=== PATIENT | male | born 1970 | race Caucasian/White ===

== ENCOUNTER 2017-12-25 19:53 | Emergency (ER) | payer OTHER, SELFPAY ==
[2017-12-25 19:59] VITALS: BP 167/98; PULSE 80; RESP 20; TEMP 36.6; O2SAT 97; BMI 44.7
--- NOTE | 2017-12-25 20:42 | ED.EPISTAXIS ---
HPI - Epistaxis General Chief complaint: Nasal Problem Stated complaint: nose bleed wont stop Time Seen by Provider: 12/25/17 20:42 Source: patient Mode of arrival: ambulatory Limitations: no limitations History of Present Illness HPI Narrative: Patient is a 47-year-old male who presents with a nosebleed. He says it just started prior to arrival. Nasal clamp initially was placed in does seem to be controlling at however he had was bleeding quite a bit and was draining down his throat. No anti-platelet or anticoagulation medication. He denies any injury MD complaint: epistaxis Location: right nostril Related Data Home Medications Medication Instructions Recorded Confirmed carvedilol [Coreg] #0 07/19/17 clonazepam [Klonopin] #0 07/19/17 dextroamphetamine [Dexedrine #0 07/19/17 Spansule] duloxetine [Cymbalta] #0 07/19/17 lisinopril #0 07/19/17 potassium chloride [Klor-Con #0 07/19/17 Sprinkle] Allergies Allergy/AdvReac Type Severity Reaction Status Date / Time No Known Allergies Allergy Uncoded 12/25/17 20:06 Review of Systems Review of Systems All systems reviewed & are unremarkable except as noted in HPI and below Constitutional Denies chills, Denies fever(s), Denies lethargy and Denies weakness ENT Ears, Nose, Mouth, and Throat: Reports system reviewed and no additional complaints, except as docu, Reports as per HPI, Denies nasal obstruction and Denies nasal trauma Cardiovascular Denies dyspnea and Denies dyspnea on exertion Respiratory Denies cough, Denies dyspnea, Denies dyspnea on exertion and Denies wheezing Gastrointestinal Gastrointestinal: Denies abdominal pain, Denies change in bowel habits, Denies diarrhea, Denies nausea and Denies vomiting Integumentary/Breasts Denies pruritus, Denies erythema, Denies rash and Denies wounds Neurologic Denies weakness Allergic/Immunologic Denies wheezing [facility] Medical History Hypertension (Acute) Social History Smoking Status: Never smoker Exam Initial Vital Signs Initial Vital Signs: Vital Signs Temperature 97.9 F 12/25/17 19:59 Pulse Rate 80 12/25/17 19:59 Respiratory Rate 20 12/25/17 19:59 Blood Pressure 167/98 H 12/25/17 19:59 Pulse Oximetry 97 12/25/17 19:59 Const General: cooperative and healthy appearing EUGENE Nose: epistaxis (Right side bleeding), No foreign body in naris and No septum abnormal Throat: posterior oropharynx normal Neck Neck: full ROM Chest Chest: normal inspection of the chest Resp Effort & Inspection: normal respiratory effort and able to speak in complete sentences Cardio Pulses: normal peripheral pulses Skin General: no rashes or lesions noted, No jaundice and No petechiae Neuro General: alert, awake and oriented x3 Procedures Epistaxis Control Time Out Performed: Yes Nostril: right Nose Prepped With: oxymetazoline Direct Inspection: unable to visualize Clots Removed by: blowing nose Cautery Used: none Device Inserted: hemostatic balloon Patient Tolerated Procedure: well Course Hospital Course: Initially after then clamped use to control nose bleed. Not dripping down the throat. However he still wheezing some. No anterior source is identified. Rhino rocket is placed with Afrin. This remains in place for some time. Once it is removed of the bleeding has stopped. Vital Signs - 8 hr 12/25/17 19:59 12/25/17 22:05 Temperature 97.9 F Pulse Rate 80 75 Respiratory Rate 20 18 Blood Pressure 167/98 H Blood Pressure [Left Wrist] 158/86 H Pulse Oximetry 97 97 Discharge Plan Departure Patient Disposition: Home, Self-Care Clinical Impression: Epistaxis Discharge Date/Time: 12/25/17 22:14 Interventions: ED Discharge Assessment Last Done: 12/25/17 22:15 Instructions: DI for Nosebleed Activity Restrictions/Additional Instructions: *You have been diagnosed with nose bleed *What to do: If nosebleed started again placed clamp, leave on for 30-60 minutes keep head forward *Continue to take medications as directed *Follow up with your primary care provider in 2-3 days *Return to ER if you should have ongoing nose bleed that does not stop after 30-60 minutes of nasal clamp, worsening or concerning symptoms Prescriptions: No Action carvedilol [Coreg] 3.125 mg Tablet Qty: 0 RF: 0 lisinopril 2.5 mg Tablet Qty: 0 RF: 0 duloxetine [Cymbalta] 20 mg Capsule,Delayed Release(Dr/Ec) Qty: 0 RF: 0 potassium chloride [Klor-Con Sprinkle] 8 mEq Capsule, Extended Release Qty: 0 RF: 0 clonazepam [Klonopin] 0.5 mg Tablet Qty: 0 RF: 0 dextroamphetamine [Dexedrine Spansule] 5 mg Capsule, Extended Release Qty: 0 RF: 0
[2017-12-25 22:05] VITALS: BP 158/86; PULSE 75; RESP 18; O2SAT 97
== END 2017-12-25 22:14 | disposition home or self-care (01) ==
PROVIDERS: Emergency Provider Emergency Medicine
DX: R04.0 Epistaxis (principal)
CPT/HCPCS: 30905; 99282

== ENCOUNTER → 2023-05-07 17:41 | Outpatient (CLI) | payer OTHER, SELFPAY ==
[2023-05-07 18:37] LABS: Add Manual Diff / Slide Review NO; Basophils Absolute Auto 100 /uL (0-100); Basophils Percent Auto 0.8 % (0-2); Eosinophils Absolute Auto 200 /uL (0-450); Eosinophils Percent Auto 2.4 % (2-4); Hematocrit 42.7 % (41-53); Hemoglobin 14.5 g/dL (13.5-17.5); Lymphocytes Absolute Auto 3200 /uL (1100-4500); Lymphocytes Percent Auto 33.8 % (25-40); Mean Corpuscular HGB Conc 33.9 % (30-36); Mean Corpuscular Hemoglobin 30.2 PG (26-34); Mean Corpuscular Volume 89.2 fL (80-100); Monocytes Absolute Auto 600 /uL (0-900); Monocytes Percent Auto 6.7 % (3-14); Neutrophils Absolute Auto 5300 /uL (1500-7000); Neutrophils Percent Auto 56.3 % (50-75); Platelet Count 252 X10^3/uL (150-400); Red Blood Cell Count 4.79 X10^6/uL (4.5-5.9); Red Cell Distribution Width 14.4 % (11.6-14.8); White Blood Cell Count 9.4 X10^3/uL (4.5-11.0)
[2023-05-07 18:40] LABS: BUN Creatinine Ratio 18.4 (6-22); Blood Urea Nitrogen 18 mg/dL (9-20); Calcium 9.7 mg/dL (8.4-10.2); Carbon Dioxide 27 mmol/L (22-32); Chloride 99 mmol/L (98-107); Estimated Glomerular Filt Rate > 60 mL/min (>60); Glucose 88 mg/dL (70-100); Hemoglobin A1C% w Est Avg Glu 5.9 % (4.0-6.0); Potassium 4.6 mmol/L (3.4-5.1); Sodium 137 mmol/L (137-145)
[2023-05-07 19:18] LABS: HEMOLYSIS 82 (0-50)
== END ==
PROVIDERS: Referring Provider Orthopaedic Surgery Orthopaedic Surgery of the Spine; Visit Provider Orthopaedic Surgery Orthopaedic Surgery of the Spine
DX: M48.02 Spinal stenosis, cervical region (principal); R73.9 Hyperglycemia, unspecified; Z01.812 Encounter for preprocedural laboratory examination
CPT/HCPCS: 36415; 80048; 83036; 85025

== ENCOUNTER → 2023-05-08 16:05 | Outpatient (CLI) | payer OTHER, SELFPAY | PROVIDERS: Referring Provider Orthopaedic Surgery Orthopaedic Surgery of the Spine; Visit Provider Orthopaedic Surgery Orthopaedic Surgery of the Spine | DX: I10 Essential (primary) hypertension (principal) | CPT/HCPCS: 93005; 93010 ==

== ENCOUNTER 2023-06-05 07:30 | Inpatient (IN) | payer OTHER, SELFPAY ==
[2023-05-27 13:52] VITALS: BMI 43.8
[2023-06-05] VITALS (13 sets, daily range): BP systolic 126–165; BP diastolic 67–101; PULSE 63–93; RESP 11–18; TEMP 36.3–37.3; O2SAT 92–99; BMI 43.8
--- NOTE | 2023-06-05 | DI.RAD.S_ITS ---
PROCEDURE: XR CERVICAL SPINE 2V OR 3V INDICATIONS: C3-4 C4-5 C5-6 C6-7 ACDF TECHNIQUE: 4 view(s) of the cervical spine were acquired. COMPARISON: None. FINDINGS: Intraoperative fluoroscopic views of multilevel ACDF are seen. IMPRESSION: Intraoperative fluoroscopic views of ACDF. Dictated by: Frandy Orozco M.D. on 06/05/2023 at 16:51 Approved by: Frandy Orozco M.D. on 06/05/2023 at 16:51
[2023-06-05] MEDS: GABAPENTIN 600 MG TABLET PO (07:57)
[2023-06-05] MEDS: LACTATED RINGERS 1,000 ML 42 ML IV ×2 (08:13→10:25)
--- NOTE | 2023-06-05 08:35 | PM.PREOP ---
Pre-operative Note Interval Note History & Physical reviewed/Exam performed by Physician: Yes Changes to H&P: No
[2023-06-05] MEDS: CEFAZOLIN 2 GM/100 ML PREMIX 100 ML IV (09:10)
--- NOTE | 2023-06-05 09:31 | SUR.OPER ---
Supine on padded OR bed, head on gel donut, arms padded and papoosed with draw sheet and closed with towel clamps, legs uncrossed, safety belt at thigh, tape over blanket over lower legs.
[2023-06-05] MEDS: BUPIVACAINE 0.25% (PF) 10 ML, EPINEPHrine 0.15 MG INJ (10:15)
[2023-06-05] MEDS: ACETAMINOPHEN IV 1,000 MG/100 ML VIAL 400 MG IV (11:30)
--- NOTE | 2023-06-05 13:33 | P.OP_ITS ---
Operative Date/Time/Diagnoses Date of procedure: 06/05/23 Time of procedure: 08:40 Pre-op diagnosis: 1. 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 C3-4, C4-5, C5-6, C6-7 spinal stenosis Post-op diagnosis: same Procedure & Clinicians Procedure: 1. C3-4 C4-5 C5-6 C6-7 anterior cervical diskectomy and fusion 2. C3-4 C4-5 C5-6 C6-7 anterior interbody cage placement 3. C3-4 C4-5 C5-6 C6-7 anterior instrumentation with plate and screw placement in C3-C4-C5-C6 and C7 vertebrae 4. Utilization of microsurgical technique and operating microscope Same procedure as scheduled: Yes Indications: Patient has been having chronic neck pain and worsening cervical radiculopathy and myelopathy. His exam shows progressively worsening myelopathic signs with + Benítez's and worsening balance and fine motor control coordination. Patient failed multiple conservative management with worsening pain weakness and numbness in his upper extremity along with worsening balance. Patient has been having difficulty performing activity of daily living. After discussing risks benefits of treatment options, patient elected proceed with surgery. Surgeon: Nicole Doshi [employer] Salesperson: Margot Thomas Click Yes if Unassisted: No Anesthesia Type: General Operative Notes Closure Type: primary Specimen(s): none sent Prosthetic devices, grafts, tissues, transplants, or devices: Globus Extend Plate, Hedron C cages Applied: catheter Estimated Blood Loss (mL): 10 Blood products transfused: none Procedure in detail: Using lateral C-arm imaging, the level between C3 and C7 was identified and marked on patient's neck. A oblique incision from midline towards medial border of sternocleidomastoid muscle was made. The platysma muscle was incised in line with skin incision. Metzenbaum scissor was used to develop the plane between the medial border of sternocleidomastoid d and the strap muscles medially. The carotid sheath and its contents were identified and protected behind the hand- held retractor during the entire case. The plane between the carotid sheath and strap muscles was developed with Metzenbaum scissors. Dissection was made down to the level of the anterior cervical fascia. Longus colli muscle was incised on the anterior aspect of vertebral bodies bilaterally from C3-C7. Spinal needle was placed into the C4-5 disc space and confirmed with lateral C-arm imaging. Using microsurgical technique and operative microscope, anterior cervical diskectomy was performed at C3-4 C4-5 C5-6 and C6-7 level. This was done by removing the disc material, removing the anterior and posterior osteophytes posterior longitudinal ligaments along with performing bilateral foraminotomies at all 4 levels. Patient was found to have severe central and foraminal stenosis at all 4 levels. Patient's stenosis was fully decompressed after decompression was completed. After the diskectomy was completed, 4 anterior interbody cages were obtained. The cage used was the globus Hedrone C cage at L4 levels. The cages were packed with DBM bone grafting material. One cage each along with the bone grafting material was then packed into the interbody spaces from C3-C7 with 1 cage into each interbody level. After the cages were placed, the anterior cervical plate was stabilized to the C3-C7 vertebrae using 2 screws at each each level. Total 10 screws were placed. After confirming placement of the hardware with AP and lateral C-arm imaging, the screws were locked into the plate using the locking mechanism and torque limiting screwdriver. After the hardware was placed and confirmed with AP and lateral C-arm imaging, the wound was irrigated with sterile normal saline. The platysma muscle and the subcutaneous tissue was closed with 2-0 Vicryl. The skin was closed with 4-0 Monocryl and Steri-Strips. At the end of the wound closure there was no visible active bleeding from the soft tissue. No drain was placed during the procedure. Patient tolerated the procedure well. Patient was transferred recovery room in stable condition. There were no complications. The Operation could not have been safely performed without compromising the technical result or length of the procedure, without the assistance of a skilled surgical services coordinator. The surgical services coordinator was medically necessary for proper positioning, retraction and manipulation of instruments, proper exposure, surgical preparation, and manipulation of tissue. Complications: none Post-operative Condition: stable Disposition: PACU Plan for aftercare: Admit to inpatient hospital
[2023-06-05] MEDS: OXYCODONE IR 5 MG TABLET PO (14:06)
[2023-06-05] MEDS: hydrOXYzine 50 MG/ML INJ 25 MG IM (14:30)
[2023-06-05] MEDS: LACTATED RINGERS 1,000 ML 125 ML IV ×2 (15:03→23:07)
--- NOTE | 2023-06-05 15:30 | PT.IPTN ---
Current Diagnoses Other spondylosis with myelopathy, cervical region (06/05/23) Spinal stenosis, cervical region (06/05/23) Surgery Performed Operation Date: 06/05/23 08:45 Actual Procedures p C3-4, C4-5, C5-6, C6-7 ACDF with anterior instrumentation - Nicole Doshi MD Physical Therapy Treatment Note M3 PT-IP Subjective Start: 06/05/23 15:35 Freq: NEEDED Status: Active Protocol: Document 06/05/23 15:30 AB (Rec: 06/05/23 15:41 AB [id number]) Subjective Physical Therapy Visit Type Type Administrative Note Notes checked on pt but is asleep. Spouse in room and wanted pt to rest for now. Obtained PLOF and home set up and provided post-op handouts. will f/u tomorrow.
[2023-06-05] MEDS: OXYCODONE IR 10 MG TABLET PO ×2 (17:55→21:01)
[2023-06-05] MEDS: GABAPENTIN 300 MG CAPSULE PO (17:56)
[2023-06-05] MEDS: hydrOXYzine pamoate 25 MG CAPSULE PO (17:56)
[2023-06-05] MEDS: CEFAZOLIN VIAL 3 GM in SODIUM CHLORIDE 0.9% 100 ML IV (18:00)
--- NOTE | 2023-06-05 19:25 | PC.NURSE ---
Recievied from OR, has hx of being sleepy after surgery. RR 10 average, as low as 8. Reporting pain. Falls asleep after making complint, O2 sat 88%. O2 applied at 2L, does use a cpap. Sat 89-91, s high as 95% whn speaking. Called RT, can have O2 up to 4L and they are coming to see him and see if applying cpap will help with ventilation. RR remains around 10. Does not appear over sedated, simply sleepy. Explained to pt no more narcotics at this time, repositioned, ice and ice chips given, he reports he is more comfortable and RT is with patient now. Later he ended up on his cpap with O2 at 2L bled into line. Much more awake and resp rate 14-18 consistently. Did give pain med then. Was no longer sleepy and is eating dinner. Later when checked he reported pain relief. RR 15. O2 sat is 95%.
[2023-06-05] MEDS: SENNOSIDES 8.6 MG TABLET 17.2 MG PO (20:57)
[2023-06-05] MEDS: carvediloL 3.125 MG TABLET 12.5 MG PO (20:58)
[2023-06-05] MEDS: DOCUSATE 100 MG CAPSULE PO (20:59)
[2023-06-05] MEDS: METFORMIN HCL 500 MG TABLET PO (21:01)
[2023-06-05] MEDS: ACETAMINOPHEN 325 MG TABLET 650 MG PO (21:02)
[2023-06-05] MEDS: clonazePAM 0.5 MG TABLET 1 MG PO (21:02)
[2023-06-06] VITALS (9 sets, daily range): BP systolic 140–155; BP diastolic 66–88; PULSE 62–99; RESP 16–18; TEMP 36.3–37; O2SAT 94–96
[2023-06-06] MEDS: CEFAZOLIN VIAL 3 GM in SODIUM CHLORIDE 0.9% 100 ML IV (00:50)
[2023-06-06] MEDS: hydrOXYzine pamoate 25 MG CAPSULE PO ×2 (00:59→22:14)
[2023-06-06] MEDS: ACETAMINOPHEN 325 MG TABLET 650 MG PO ×2 (05:59→22:14)
[2023-06-06] MEDS: OXYCODONE IR 10 MG TABLET PO ×4 (05:59→20:03)
--- NOTE | 2023-06-06 06:18 | PC.NURSE ---
pt unable to void throughtout shift First bladder scan at 0100 was greater than 560, however straight cath resulted in 1600 ml urine output. @0600 pt rescanned after post void attempt with no urine output and retrieve 750 ml urine out put via indwelling catheter. Pt tolerated procedure well.
--- NOTE | 2023-06-06 08:46 | OT.IP.EVAL ---
Current Diagnoses Other spondylosis with myelopathy, cervical region (06/05/23) Spinal stenosis, cervical region (06/05/23) Surgery Performed Operation Date: 06/05/23 08:45 Actual Procedures p C3-4, C4-5, C5-6, C6-7 ACDF with anterior instrumentation - Nicole Doshi MD Past Medical History (Last Updated 05/27/23 @ 14:48 by Ayana Joshua, RN) ADD (attention deficit disorder) Anesthesia complication (~2017) Anxiety Arrhythmia Arthritis CAD (coronary artery disease) Depression Diabetes Episode of syncope (06/28/22) Gout History of COVID-19 (2020) HLD (hyperlipidemia) Hypertension Metabolic syndrome Mood disorder JANETTE (obstructive sleep apnea) Rhinovirus (06/28/22) Testicular hypofunction Surgical History (Last Updated 05/27/23 @ 14:16 by Ayana Joshua RN) History of carpal tunnel surgery of left wrist History of carpal tunnel surgery of right wrist Hx of cardiac cath (2013) Hx of colonoscopy Occupational Therapy Inpatient Evaluation/Re-Eval M1 PT/OT-IP Prior Functional Status Start: 06/05/23 15:35 Freq: NEEDED Status: Active Protocol: Document 06/06/23 08:46 [facility] (Rec: 06/06/23 09:52 [facility] [id number]) Medical Review Prior Functional Status Medical History Reviewed Yes Mobility and Gait per spouse: pt was independent with all mobilities and ambulation without AD Activities of Daily Living and IADL's Independent with all needs ADl, Iadl , and drives. Social History Household Members spouse,other Living Arrangements House Number of Floors (Floors) Two Floors Number of Stairs To Enter/Railing? 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 pt will have his spouse to assist him at home; has a 10 y /o grandson at home and can assist some M2 OT-IP Current Condition Start: 06/05/23 14:56 Freq: Status: Active Protocol: Document 06/06/23 08:46 [facility] (Rec: 06/06/23 09:52 [facility] [id number]) Occupational Therapy Current Condition Current Condition Evaluation Date 06/06/23 Treatment Diagnosis S/P C3-7 ACDF Diagnosis Onset Date 06/05/23 Post Operative Precautions Cervical Spine Precautions Soft Collar for Comfort,Soft Collar at all Times,Rigid Collar,No Heavy Lifting,Log Roll M3 OT- IP Subjective and Pain Start: 06/05/23 14:56 Freq: Status: Active Protocol: Document 06/06/23 08:46 [facility] (Rec: 06/06/23 09:46 [facility] [id number]) OT- Subjective Occupational Therapy Visit Type Visit Start Time 08:46 Visit Stop Time 09:27 Total Visit Minutes 41 Occupational Therapy Visit Comments Patient Comments Pt agreed to get up, PT also present for the eval. Patient/Caregiver Goals TO go home. OT Pain Assessment Pain When Pain Assessed During Mobility Pain Present Pain Present Pain Reported Location Neck Intensity 5 Scale Used Numeric (0 - 10) M4 OT- IP ADL's Start: 06/05/23 14:56 Freq: Status: Active Protocol: Document 06/06/23 08:46 [facility] (Rec: 06/06/23 09:46 [facility] [id number]) OT [id number] Comments OT Self-Feeding Comments Educated pt to sit upright chew his food thoroughly,eat colder food, and able to give pt information sheet for swallowing. OT ADL-Grooming Comments OT Grooming Comments Pt states to do after breakfast. OT ADL-Oral Care Comments Oral Care Comments Educated to spit into a cup or hinge at his hips to best follow his cervical precautions. OT ADL-Dressing General Eval Lower Body Dressing Ability Independent Comments OT Dressing Comments Pt able to independently cross his legs to celia/doff his socks and able to follow his cervical precautions.Pt able to celia/doff the soft collar of his own. OT ADL-Toileting Comments OT Toileting Comments Educated to be mindful of his head during hygiene needs. Suggested standing may be easier. OT ADL-Bathing Comments OT Bathing Comments Pt states to get a shower chair. M6 OT- IP Functional Cognition Start: 06/05/23 14:56 Freq: Status: Active Protocol: Document 06/06/23 08:46 [facility] (Rec: 06/06/23 09:46 [facility] [id number]) Cognitive Factors Limiting Selfcare Function Cognitive Ability Level of Alertness Alert Patient Orientation Name,Age,Birthday,Month,Date, Year,Day of Week,Place, Situation Attention Span Ability Capable of Focused Attention, Capable of Sustained Attention Ability to Follow Commands Able to Follow Multi-Step Commands Memory Description No Deficits Noted Safety Awareness No Deficits Noted Problem Solving Ability No deficits Noted Cognitive Comments Cognitive Assessment Comments Pt just needing cues to slow down. OT- Vision and Hearing OT- Hearing Assessment OT- Hearing Assessment WFL OT- Vision Assessment Visual Attentiveness WFL Occular Pursuits WFL Visual Convergence WFL Visual [place] WFL M7 OT- IP Mobility and Balance Start: 06/05/23 14:56 Freq: Status: Active Protocol: Document 06/06/23 08:46 [facility] (Rec: 06/06/23 09:46 [facility] [id number]) OT- Bed Mobility Assessment Supine to Sit Supine to Sit Assist Standby Assistance OT-Transfer Assessment Sit to and From Stand Sit to and from Stand Standby Assistance Transfers Transfer Ability Standby Assistance Technique Transfer Destination Bed,Chair Transfer Technique Stand Step Pivot Devices Transfer Assistive Devices Bed Rail Comments Mobility Comments SBA for bed mobility and vc to slow down as pt tends to move quickly. Pt SBA and assist to hold the catheter bag by PT and afterwards after up on his feet more steady and able to do the steps. OT- Balance Assessment Sitting Balance and Reactions Static Sitting Balance Ability Normal Dynamic Sitting Balance Ability Normal Standing Balance and Reactions Static Standing Balance Ability Normal Dynamic Standing Balance Ability Good M9 OT- IP Assessment and Plan Start: 06/05/23 14:56 Freq: Status: Active Protocol: Document 06/06/23 08:46 [facility] (Rec: 06/06/23 09:46 [facility] [id number]) OT Summary Assessment and Plan Potential Rehabilitation Potential Excellent Analytic Complexity at Evaluation Low Summary OT Impairments Pain Progress Towards Goals Safe For Discharge Assessment Summary Pt Low complexity and main barrier is pain and already able to do most of his ADL's on his own. Pt get a HHSP. Pt has a supportive to assist with his needs. Pt go home with assist when medically stable. Frequency of Treatment Frequency Of Treatment Discharge Discharge Recommendations Home Equipment Needs hand held shower spray Transportation Needs at Discharge Private Vehicle
[2023-06-06] MEDS: SPIRONOLACTONE 25 MG TABLET PO (08:49)
[2023-06-06] MEDS: FLUoxetine 20 MG CAPSULE 60 MG PO (08:50)
[2023-06-06] MEDS: allopurinoL 100 MG TABLET 300 MG PO (08:50)
[2023-06-06] MEDS: AMLODIPINE 5 MG TABLET 10 MG PO (08:50)
[2023-06-06] MEDS: clonazePAM 0.5 MG TABLET 1 MG PO ×2 (08:50→20:04)
[2023-06-06] MEDS: METFORMIN HCL 500 MG TABLET PO ×2 (08:50→20:04)
[2023-06-06] MEDS: carvediloL 3.125 MG TABLET 12.5 MG PO ×2 (08:50→20:03)
[2023-06-06] MEDS: ATORVASTATIN 20 MG TABLET 40 MG PO (08:50)
[2023-06-06] MEDS: DOCUSATE 100 MG CAPSULE PO ×2 (08:51→20:04)
[2023-06-06] MEDS: lisinopriL 20 MG TABLET 40 MG PO (08:51)
--- NOTE | 2023-06-06 09:26 | PT.IIE ---
Current Diagnoses Other spondylosis with myelopathy, cervical region (06/05/23) Spinal stenosis, cervical region (06/05/23) Surgery Performed Operation Date: 06/05/23 08:45 Actual Procedures p C3-4, C4-5, C5-6, C6-7 ACDF with anterior instrumentation - Nicole Doshi MD Surgical History (Last Updated 05/27/23 @ 14:16 by Ayana Joshua, RN) History of carpal tunnel surgery of left wrist History of carpal tunnel surgery of right wrist Hx of cardiac cath (2013) Hx of colonoscopy Medical History (Last Updated 05/27/23 @ 14:48 by Ayana Joshua RN) ADD (attention deficit disorder) Anesthesia complication (~2017) Anxiety Arrhythmia Arthritis CAD (coronary artery disease) Depression Diabetes Episode of syncope (06/28/22) Gout History of COVID-19 (2020) HLD (hyperlipidemia) Hypertension Metabolic syndrome Mood disorder JANETTE (obstructive sleep apnea) Rhinovirus (06/28/22) Testicular hypofunction Physical Therapy Inpatient Evaluation/Re-Eval M1 PT/OT-IP Prior Functional Status Start: 06/05/23 15:35 Freq: NEEDED Status: Active Protocol: Document 06/06/23 11:09 AB (Rec: 06/06/23 11:41 AB [id number]) Medical Review Prior Functional Status Medical History Reviewed Yes Mobility and Gait per spouse: pt was independent with all mobilities and ambulation without AD Activities of Daily Living and IADL's Indepedent with all needs ADLs , IADLs, and drives. Social History Household Members spouse,other Living Arrangements House Number of Floors (Floors) Two Floors Number of Stairs To Enter/Railing? 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 pt will have his spouse to assist him at home; has a 10 y /o grandson at home and can assist some M2 PT-IP Current Condition Start: 06/05/23 15:35 Freq: NEEDED Status: Active Protocol: Document 06/06/23 11:09 AB (Rec: 06/06/23 11:41 AB [id number]) Physical Therapy Current Condition Current Condition Evaluation Date 06/06/23 Treatment Diagnosis s/p cervical ACDF with anterior instrumentation Onset Date 06/05/23 M3 PT-IP Subjective Start: 06/05/23 15:35 Freq: NEEDED Status: Active Protocol: Document 06/06/23 11:09 AB (Rec: 06/06/23 11:41 AB [id number]) Subjective Physical Therapy Visit Type Type Initial Evaluation Visit Start Time 08:59 Visit Stop Time 09:26 Total Visit Minutes 27 Notes PT eval performed concurrently to OT eval. Physical Therapy Visit Comments Patient Comments Pt is working with OT when PT enters, and pt is agreeable to PT eval. Therapy Pain Assessment Pain When Pain Assessed At Rest Pain Present Pain Present Pain Reported Location Neck Intensity 4 Scale Used Numeric (0 - 10) M4 PT-IP Mobility and Gait Start: 06/05/23 15:35 Freq: NEEDED Status: Active Protocol: Document 06/06/23 11:09 AB (Rec: 06/06/23 11:41 AB [id number]) PT-Bed Mobility Assessment Rolling Type of Rolling Log Rolling Level of Assist Standby Assistance Supine to Sit Supine to Sit Independent Sit to Supine Sit to Supine Independent Scooting Scooting to Edge of Bed Independent PT-Transfer Assessment Sit to and From Stand Sit to and from Stand Independent Equipment Transfer Assistive Device Gait Belt,Front Wheeled Walker Orthotic/Prosthetic Devices or Brace: Yes Transfers Transfer Destination Bed,Chair Transfer Technique ambulated Transfer Ability Level of Assist Independent Comments Mobility Comments The pt presents in bed working with OT. Once supine in bed to simulate home environment, the pt was able to perform log roll and bed mobility with SBA, requiring cues only for education on log roll. Once sitting at EOB, the pt performed STS with independence. Pt's BP remained stable and pt was asymptomatic throughout change in positions. Once standing, the pt ambulated 75ft with FWW to stairs, where he was able to to ascend and descend 3 step with bilateral hand rails then 9 steps with bilateral hand rails. The pt ambulated 75ft back to room without AD and SBA. The pt returned to room and transferred to chair. All needs were met and call light was placed within reach. Gait Assessment Gait Gait Assistance Required: Standby Assistance Distance (Feet) 150 Assistive Devices Assistive Device Gait Belt,Front Wheeled Walker Orthotic/Prosthetic Devices or Brace: Yes Gait Deviations General Gait Pattern Lateral Trunk Lean Factors Limiting Gait Function Factors Limiting Gait Function Decreased Activity Tolerance Comments Gait Comments The pt sways laterally as he walks. Initially he reports mild imbalance, but this improved with more ambulation, therefore ambulation without AD was trialed. Pt was educated on when to use FWW if needed at home. Stair Climbing Assessment Evaluation Level of Assist On Stairs Standby Assistance Devices Stair Climbing Assistive Devices Left Railing,Right Railing Technique/Endurance Stair Climbing Direction Ascend and Descend Stair Climbing Technique Step Over Step Number of Steps Climbed 12 Query Text: Stair Climbing Set # Repetitions (reps) 1 Comments Stair Climbing Comments Pt was able to ascend/descend a total of 12 steps but required light BUE support. PT-Balance Assessment Sitting Balance and Reactions Static Sitting Balance Ability Normal Dynamic Sitting Balance Ability Normal Standing Balance and Reactions Static Standing Balance Ability Normal Dynamic Standing Balance Ability Good M5 PT-IP Objective Assessments Start: 06/05/23 15:35 Freq: NEEDED Status: Active Protocol: Document 06/06/23 11:09 AB (Rec: 06/06/23 11:41 AB [id number]) Orientation Orientation/Cognition Level of Alertness Alert Orientation Name,Age,Birthday,Month,Date, Year,Day of Week,Place, Situation Safety Awareness Understands Safety Issues Memory Description No Deficits Noted Gross Range of Motion Upper Extremity ROM Assessment Within Functional Limits Lower Extremity ROM Assessment Within Functional Limits Strength Upper Extremity Strength Assessment Within Functional Limits Lower Extremity Strength Assessment Within Functional Limits M6 PT-IP Treatment Start: 06/05/23 15:35 Freq: NEEDED Status: Active Protocol: Document 06/06/23 11:09 AB (Rec: 06/06/23 11:41 AB [id number]) Physical Therapy Treatment Education Education Provided Precautions,Post-Op Packet, Safety Brace Education Patient M7 PT-IP Assessment and Plan Start: 06/05/23 15:35 Freq: NEEDED Status: Active Protocol: Document 06/06/23 11:09 AB (Rec: 06/06/23 11:41 AB [id number]) PT Summary Assessment and Plan Potential Rehabilitation Potential Excellent Status of Condition at Evaluation Stable Summary Impairments Pain,ROM,Strength,Balance,Bed Mobility,Transfers,Gait, Activity Tolerance Assessment Summary Shorty Garcia is a 52 year old male patient who is s/p cervical ACDF with anterior instrumentation performed on 06/05/23. Today's PT evaluation revealed the pt is functioning at a high level, as he is able to perform functional mobility with SBA- independently with minimal verbal cues required, while also demonstrating good safety awareness. Based on his current level of function, PT recommends discharge to home with assistance and referral to outpatient PT once indicated to improve his post surgical outcomes. Due to his high level of function PT will discharge pt from skilled PT, however PT should be reconsulted if there is a change in status. Goals Bed Mobility Goal Independent Transfer Goal Independent Gait Goal Independent Gait Distance 500 Other Goals Pt to be able to ascend/ descend 10 steps independently to show improving LE strength . Pt to transfer with LRAD to show improving functional mobility. Pt to ambulate 500ft independently with LRAD or no AD to show improving tolerance to activity. Days to Meet Goals 5 Frequency of Treatment Frequency Of Treatment Discharge Treatment Plan Physical Therapy Treatment Plan Bed Mobility Training,Transfer Training,Gait Training, Therapeutic Exercise,Balance Retraining,Post Op Education, Discharge Planning,Hot or Cold Pack,Neuromuscular Re-ed, Coordination Retraining,Manual Therapy Precautions Cervical Spine Precautions Soft Collar for Comfort,Soft Collar at all Times,Rigid Collar,No Heavy Lifting,Log Roll Recommendations To Nursing Amount of Assist Needed Independent,Standby Assistance Discharge Recommendations PT Discharge Recommendations Home with Assistance, Outpatient PT Transportation Needs at Discharge Private Vehicle
--- NOTE | 2023-06-06 09:46 | OT.IP.EVAL ---
Current Diagnoses Other spondylosis with myelopathy, cervical region (06/05/23) Spinal stenosis, cervical region (06/05/23) Surgery Performed Operation Date: 06/05/23 08:45 Actual Procedures p C3-4, C4-5, C5-6, C6-7 ACDF with anterior instrumentation - Nicole Doshi MD Past Medical History (Last Updated 05/27/23 @ 14:48 by Ayana Joshua, RN) ADD (attention deficit disorder) Anesthesia complication (~2017) Anxiety Arrhythmia Arthritis CAD (coronary artery disease) Depression Diabetes Episode of syncope (06/28/22) Gout History of COVID-19 (2020) HLD (hyperlipidemia) Hypertension Metabolic syndrome Mood disorder JANETTE (obstructive sleep apnea) Rhinovirus (06/28/22) Testicular hypofunction Surgical History (Last Updated 05/27/23 @ 14:16 by Ayana Joshua RN) History of carpal tunnel surgery of left wrist History of carpal tunnel surgery of right wrist Hx of cardiac cath (2013) Hx of colonoscopy Occupational Therapy Inpatient Evaluation/Re-Eval M1 PT/OT-IP Prior Functional Status Start: 06/05/23 15:35 Freq: NEEDED Status: Active Protocol: Document 06/05/23 15:30 AB (Rec: 06/05/23 15:41 [id number]) Medical Review Prior Functional Status Medical History Reviewed Yes Mobility and Gait per spouse: pt was independent with all mobilities and ambulation without AD Social History Household Members spouse,other Living Arrangements House Number of Floors (Floors) Two Floors Number of Stairs To Enter/Railing? 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 Patient/Caregiver Goals TO go home. OT Pain Assessment Pain When Pain Assessed During Mobility Pain Present Pain Present Pain Reported Location Neck Intensity 5 Scale Used Numeric (0 - 10) M4 OT- IP ADL's Start: 06/05/23 14:56 Freq: Status: Active Protocol: Document 06/06/23 08:46 [facility] (Rec: 06/06/23 09:46 [facility] [id number]) OT [id number] Comments OT Self-Feeding Comments Educated pt to sit upright chew his food thoroughly,eat colder food, and able to give pt information sheet for swallowing. OT ADL-Grooming Comments OT Grooming Comments Pt states to do after breakfast. OT ADL-Oral Care Comments Oral Care Comments Educated to spit into a cup or hinge at his hips to best follow his cervical precautions. OT ADL-Dressing General Eval Lower Body Dressing Ability Independent Comments OT Dressing Comments Pt able to independently cross his legs to celia/doff his socks and able to follow his cervical precautions. pt able to celia/doff the soft collar on his own. OT ADL-Toileting Comments OT Toileting Comments Educated to be mindful of his head during hygiene needs. Suggested standing may be easier. OT ADL-Bathing Comments OT Bathing Comments Pt states to get a shower chair. Educated soft collar can be placed in the dryer if it gets wet. M6 OT- IP Functional Cognition Start: 06/05/23 14:56 Freq: Status: Active Protocol: Document 06/06/23 08:46 [facility] (Rec: 06/06/23 09:46 [facility] [id number]) Cognitive Factors Limiting Selfcare Function Cognitive Ability Level of Alertness Alert Patient Orientation Name,Age,Birthday,Month,Date, Year,Day of Week,Place, Situation Attention Span Ability Capable of Focused Attention, Capable of Sustained Attention Ability to Follow Commands Able to Follow Multi-Step Commands Memory Description No Deficits Noted Safety Awareness No Deficits Noted Problem Solving Ability No deficits Noted Cognitive Comments Cognitive Assessment Comments Pt just needing cues to slow down. OT- Vision and Hearing OT- Hearing Assessment OT- Hearing Assessment WFL OT- Vision Assessment Visual Attentiveness WFL Occular Pursuits WFL Visual Convergence WFL Visual [place] WFL M7 OT- IP Mobility and Balance Start: 06/05/23 14:56 Freq: Status: Active Protocol: Document 06/06/23 08:46 [facility] (Rec: 06/06/23 09:46 [facility] [id number]) OT- Bed Mobility Assessment Supine to Sit Supine to Sit Assist Standby Assistance OT-Transfer Assessment Sit to and From Stand Sit to and from Stand Standby Assistance Transfers Transfer Ability Standby Assistance Technique Transfer Destination Bed,Chair Transfer Technique Stand Step Pivot Devices Transfer Assistive Devices Bed Rail Comments Mobility Comments SBA for bed mobility and vc to slow down as pt tends to move quickly. Pt SBA and assist to hold the catheter bag by PT and afterwards after up on his feet more steady and able to do the steps. OT- Balance Assessment Sitting Balance and Reactions Static Sitting Balance Ability Normal Dynamic Sitting Balance Ability Normal Standing Balance and Reactions Static Standing Balance Ability Normal Dynamic Standing Balance Ability Good M9 OT- IP Assessment and Plan Start: 06/05/23 14:56 Freq: Status: Active Protocol: Document 06/06/23 08:46 [facility] (Rec: 06/06/23 09:46 [facility] [id number]) OT Summary Assessment and Plan Potential Rehabilitation Potential Excellent Analytic Complexity at Evaluation Low Summary OT Impairments Pain Progress Towards Goals Safe For Discharge Assessment Summary Pt Low complexity and main barrier is pain and already able to do most of his ADL's on his own. Pt plans to get use a shower chair for showering and get a HHSP. Pt has a supportive to assist with his needs. Pt go home with assist when medically stable. Frequency of Treatment Frequency Of Treatment Discharge Discharge Recommendations Home Equipment Needs hand held shower spray Transportation Needs at Discharge Private Vehicle
--- NOTE | 2023-06-06 09:47 | P.PN_ITS ---
Subjective Subjective Date Patient Seen: 06/06/23 Time Patient Seen: 09:47 Interval history: Pt is found sitting at the chair and eating. He just worked with PT. Pain is controled with oral medications. He did have urinary retension yesterday and required a straight cath which produced 1600cc of urine. Was unable to urinate again this morning and folly was placed. He would like to keep the folly in a few more hours before removal to avoid having to be cath'ed again. He denies any numbness or tingling in upper or lower extremities. Denies any previous issues with urinary stream or prostate. Exam Vital Signs (past 8 hours): - 06/06/23 06:00 06/06/23 08:50 06/06/23 08:51 Temperature 97.3 F L Pulse Rate 65 65 65 Respiratory Rate 17 Blood Pressure 153/88 H 155/86 H 155/86 H Pulse Oximetry 95 06/06/23 09:18 Temperature 97.6 F Pulse Rate 65 Respiratory Rate 18 Blood Pressure 155/86 H Pulse Oximetry 96 Fraction of Inspired Oxygen 28 SaO2/FiO2 Ratio 332 Oxygen Delivery Method Nasal Cannula Oxygen Flow Rate 2 Narrative Exam Narrative: Dressing is stained with blood, but contained. Surrounding skin is dry. Able to manipulate upper and lower extremities. Sensation is grossly intact in upper and lower extremities. Resp Effort & Inspection: normal respiratory effort and able to speak in complete sentences [facility] Medical History (Updated 05/27/23 @ 14:48 by Ayana Joshua RN) Mood disorder History of COVID-19 (2020) Anesthesia complication (~2018) Testicular hypofunction Metabolic syndrome Gout Depression CAD (coronary artery disease) Arthritis Arrhythmia Anxiety ADD (attention deficit disorder) Rhinovirus (06/28/22) Episode of syncope (06/28/22) Diabetes JANETTE (obstructive sleep apnea) HLD (hyperlipidemia) Hypertension Surgical History (Updated 05/27/23 @ 14:16 by Ayana Joshua RN) Hx of colonoscopy Hx of cardiac cath (2013) History of carpal tunnel surgery of left wrist History of carpal tunnel surgery of right wrist Social History household members: spouse and other Smoking Status: Former smoker alcohol intake: never Assessment & Plan Post-op Postoperative Procedures: Procedures Operation Date: 06/05/23 08:45 Actual Procedure Side Surgeon p C3-4, C4-5, C5-6, C6-7 ACDF with anterior instrumentation Nicole Doshi MD Postoperative day: 1 Postoperative status: doing well and urinary retention Postoperative plan: routine post-op care Postoperative plan narrative: Continue with multimodal pain control. Continue to work with PT for ambulation. Start Flomax 0.4mg qday to assist with voiding. Recommend removing folly in PM and attempt to void. If able to void and cleared by PT, consider discharge tomorrow. Time Spent With Patient Time with patient: less than 15 minutes Quality VTE Deep Vein Thrombosis/Pulmonary Embolism Present on Admission: No
--- NOTE | 2023-06-06 09:54 | PC.NURSE ---
Addendum entered by Germaine Ochoa R.N. 06/06/23 18:54: Dressing changed, patient tolerated well. Singh removed late morning. Pt voided x2 at 1600 and 1700 this evening. Called AMMY Pascual to let him know that patient voided, ambulated well with PT, and pain adequately managed. Pt requesting to stay one more night since I am still very sleepy and prefers to go home in the morning. AMMY Pascual ok'ed this plan when this RN notified him on the phone. Will continue to monitor. Original Note: Day shift: Received in report from NOC RN Imani that patient had retained urine, they did I&O cath, still retaining and they put in Singh catheter early this AM. This RN notified AMMY Pascual who ok'ed Singh placement and asked that this RN remove Singh later today once patient is ambulating. AMMY also asked that I change patient's neck dressing. Shadow drainage. Will continue to monitor.
[2023-06-06] MEDS: TAMSULOSIN 0.4 MG CAPSULE PO (10:53)
--- NOTE | 2023-06-06 11:44 | CM.DANOTE ---
Reviewed EMR for pt's medical status and anticipated d/c needs. Pt found to be sleeping at time of this assessment. Payor: Tate Bernal Attending: Dr. Doshi Pt is a 52 year-old M admitted following his cervical fusion surgery. Pt endorsed a hx of worsening neck and upper extremity pain that radiates down his right arm and into his hand. The pain/numbness has significantly impacted his daily activities and functioning over the last year. Pt resides in his own home with his family. Per Ortho, plan is to continue to work with PT, once cleared by PT, anticipated home d/c tomorrow. Further d/c needs pending PT eval/recommendations. DCP will continue to follow and assist with any identified resource/coordination needs. Discharge Planning/Care Management CM Discharge Assessment Start: 06/06/23 11:30 Freq: Status: Active Protocol: Document 06/06/23 11:31 DPL (Rec: 06/06/23 11:43 DPL [id number]) Discharge Planning Assessment Assigned Stock Transfer Clerk LYUBOV Malagon Advance Directives? Yes Advance Directives on File No History Provided By Medical Record Expected Length of Stay 2 Has Patient been admitted in last 30 No days? Prior Living Arrangements House Household Members spouse,other Type of transporation used prior to Drives own vehicle admit Independent with ADL's Yes Is patient alert and oriented? Yes Caregiver for Another No DME Already Rented / Owned FWW / Walker Comment No anticipated d/c needs indicated at this time. Pending PT eval recommendations for further clarification. Barriers to Discharge No Discharge Plan Home Community Services Physical Therapy Transportation Arrangement Family Referrals Initiated None needed Whiteboard Updated in Patient Room with Yes name and ext. # of Stock Transfer Clerk Review Status In Process Please Provide Date Initial DC 06/06/23 Assessment Was Performed Pre-Anesthesia Assessment Start: 05/27/23 13:52 Freq: Status: Complete Protocol: Document 05/27/23 13:52 CAB (Rec: 05/27/23 14:44 CAB [id number]) Pre-Anesthesia Assessment Preferred Name [facility] Patient Information Reviewed Via Phone Assessment Assessment Completed With Patient Diagnostic Results BMP/CMP,CBC,EKG Comment Labs/EKG @ Primary Care Provider Bertha Smith Seen Specialist in Last 12 Months Yes Specialist Seen Cleaner Housekeeping,Orthopedist,Other Primary Language Bangladeshi Job Spotter Required No Height 185.42 cm Weight 150.593 kg Body Mass Index (BMI) 43.8 Hearing Ability Normal Visual Assist Glasses Dentition Type Teeth, Natural Present,Teeth, Broken,Teeth, Missing Hx Anesthesia Reactions Yes: Oral surgery they couldn 't bring me out of it sent to ED for monitor Hx Family Anesthesia Reaction No Hx Malignant Hyperthermia No Hx Blood Transfusions No: Jehovahs Witness - NO BLOOD PRODUCTS Anesthesia Review Requested No Gang Leader No alcohol intake current alcohol intake frequency holidays/special occasions only Smoking Status Former smoker how long ago did patient quit smoking 1988 Substance Use Type marijuana Comment Edibles Pain Present Pain Reported Musculoskeletal Symptoms Abnormal Gait,Back Pain, Difficulty Walking,Limited Range of Motion,Neck Pain History of Falling (Recent or History of No ) Patient is completely paralyzed or No completely immobile Mental Status Oriented to own ability Is patient on oxygen? No Does patient have TIRADO/SOB Yes: After I eat and then climb stairs Hx Sleep Apnea Yes CPAP/BIPAP use prescribed and used routinely Will Bring CPAP/BIPAP DOS Yes Currently Taking a Beta Flores Yes: Carvedilol Hx SOB Yes: After I eat and then climb stairs Hx Syncope or Dizziness Yes Anti-Coagulant Therapy No Has a Cleaner Housekeeping Yes: Last visit 07/06/[address] Bellamy @ [facility] Cardiac Testing No: Last Echo @ [facility] 07/06/22 Hx Pacemaker/ICD No Pacemaker Rep Required? No Cardiac Clearance Received Not Applicable Comment Cardiac records scanned Diet Type At Home Regular Dysphagia No Gastrointestinal Symptoms Reflux Urinary Catheter Present No Hx Urinary Self Catheterization No Diabetes Yes HgbA1C 5.9 Date 05/07/23 Hx Drug Resistant Organism No Presence of External or Internal Medical Yes: CPAP Devices Received a COVID vaccine? Yes Received all doses? No Marital Status Lives With spouse,children Current Living Arrangements House Number of Floors (Floors) Two Floors Support System Family,Spouse Does the Patient Have Assistance After Yes Surgery Patient Discharge Plan Description Return Home Comment Pt not advised on length of stay per surgeon Feels Safe in Current Environment Yes Been Physically Hurt or Threatened By a No Person in Current Environment Do you have thoughts of harming yourself None or others? Are you currently considering suicide? No Do you have a plan to hurt yourself or No Plan others? Do You Have Any Spiritual Beliefs That Yes: Jehovahs Witness - NO May Affect Your HC Choices? BLOOD PRODUCTS Comment Jehovahs witness Who Can We Speak to About Patient's Care Family, friends Identifying Code for Release of Patient Declines to issue Information Health Care Proxy/Next of Kin Marlen () Health Care Proxy Emergency Contact Name Janet (sister) Emergency Contact Advance Directives? Yes Advance Directives on File No Power of Concrete Finisher No PAC Instructions Bring CPAP/BIPAP,Diabetes instructions,Medications to take/avoid,Nasal antibiotic,No ETOH/petroleum product on skin DOS,NPO,Post-op transportation,Pre-surgical wash,Sensory aids,Sturdy shoes /comfortable clothes,Do not bring valuables and remove jewelry
--- NOTE | 2023-06-06 12:22 | CM.DPC ---
DCP Cont. Premera case checker Bertha called to offer assistance if needed. This CONTROL ROOM OPERATOR did not think we would need any support, but she left her phone number just in case: .
--- NOTE | 2023-06-06 18:22 | P.DS_ITS ---
History of Present Illness History of Present Illness Chief complaint: INPT Discharge Providers Provider Date of admission: 06/05/23 07:30 Discharge Date: 06/07/23 Consults: 06/05/23 14:28 Consult to Occupational Therapy Evaluate & Treat Comment: Physician Instructions: Evaluate and treat Consult to Physical Therapy Evaluate & Treat Comment: Physician Instructions: Evaluate and Treat Discharge provider: Wallace Pascual PA-C Summary Status at Discharge Cognitive/behavioral status at discharge: oriented Functional status at discharge: uses cane/walker Time Spent with Patient Time spent: Less than 30 minutes Exam Vital Signs (past 8 hours): - 06/06/23 17:16 Temperature 97.9 F Pulse Rate 62 Respiratory Rate 18 Blood Pressure 147/83 H Pulse Oximetry 94 Fraction of Inspired Oxygen 28 SaO2/FiO2 Ratio 332 Oxygen Delivery Method Room Air Oxygen Flow Rate 2 PFSH Medical History (Updated 05/27/23 @ 14:48 by Ayana Joshua RN) Mood disorder History of COVID-19 (2020) Anesthesia complication (~2017) Testicular hypofunction Metabolic syndrome Gout Depression CAD (coronary artery disease) Arthritis Arrhythmia Anxiety ADD (attention deficit disorder) Rhinovirus (06/28/22) Episode of syncope (06/28/22) Diabetes JANETTE (obstructive sleep apnea) HLD (hyperlipidemia) Hypertension Surgical History (Updated 05/27/23 @ 14:16 by Ayana Joshua RN) Hx of colonoscopy Hx of cardiac cath (2013) History of carpal tunnel surgery of left wrist History of carpal tunnel surgery of right wrist Social History household members: spouse and other Smoking Status: Former smoker alcohol intake: never Discharge Plan Discharge Plan Patient Disposition: Home Discharge orders & Medications Prescriptions: No Action carvedilol [Coreg] 3.125 mg tablet 12.5 mg PO BID Qty: 0 clonazepam [Klonopin] 0.5 mg tablet 1 mg PO BID Qty: 0 atorvastatin 40 mg Tablet 40 mg PO DAILY metformin 500 mg Tablet 500 mg PO BID acetaminophen 500 mg Tablet 1,000 mg PO BID spironolactone 25 mg Tablet 25 mg PO DAILY dextroamphetamine-amphetamine [Adderall] 30 mg Tablet 30 mg PO BID Rx Instructions: administer doses at least 4-6 hours apart modafinil 200 mg Tablet 400 mg PO QAM amlodipine 10 mg Tablet 10 mg PO DAILY fluoxetine 20 mg Tablet 60 mg PO DAILY ibuprofen [Advil] 200 mg Tablet 800 mg PO BID-TID gabapentin 300 mg Capsule 300 mg PO BID PRN (Reason: Pain) allopurinol 300 mg Tablet 300 mg PO DAILY lisinopril 40 mg Tablet 40 mg PO DAILY Ozempic 1 mg/dose (4 mg/3 mL) Pen Injector 1 mg SUBCUT QWEEK Follow up/Referrals: Nicole Doshi MD [Physician] - As previously scheduled (Follow up with Dr Doshi on 06/20/2023 @ 3:20 pm at [facility] in [place].) Diet/Activity/Treatments Diet: Diet as Tolerated Food texture: Soft Diet comment: Stick to very soft and moist foods for the first 3-5 days after s urgery. Activity: No lifting more than 10 pounds. Cold/Heat Therapy: Heating pad to back of neck/between shoulder blades as needed for pain. Other treatments: Soft cervical collar is for comfort; if it is uncomfortable, don't wear it. Most people feel better with it on when sitting or standing. Some people feel better with it on while sleeping. Take off to eat and shower. Skin/Wound/Dressing Care Dressing: May shower; leave dressing on until follow up in office. If dressing becomes wet inside, remove top layer but keep steri strips on until follow up visit. Do not need to replace top layer of dressing. Visit Report/Discharge Packet Instructions: DI for Anterior Cervical Discectomy and Fusion, DI for Prescription Opioid Use Stand Alone Forms: Patient Portal/API, Stroke Signs & Symptoms, Surgery Discharge Quality VTE Deep Vein Thrombosis/Pulmonary Embolism Present on Admission: No
[2023-06-06] MEDS: SENNOSIDES 8.6 MG TABLET 17.2 MG PO (20:04)
[2023-06-06] MEDS: GABAPENTIN 300 MG CAPSULE PO (22:16)
--- NOTE | 2023-06-07 06:43 | P.DS_ITS ---
History of Present Illness History of Present Illness Date Patient Seen: 06/07/23 Time Patient Seen: 06:43 Chief complaint: INPT Narrative: Operative Date/Time/Diagnoses Date of procedure: 06/05/23 Time of procedure: 08:40 Pre-op diagnosis: 1. 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 C3-4, C4-5, C5-6, C6-7 spinal stenosis Post-op diagnosis: same Procedure & Clinicians Procedure: 1. C3-4 C4-5 C5-6 C6-7 anterior cervical diskectomy and fusion 2. C3-4 C4-5 C5-6 C6-7 anterior interbody cage placement 3. C3-4 C4-5 C5-6 C6-7 anterior instrumentation with plate and screw placement in C3-C4-C5-C6 and C7 vertebrae 4. Utilization of microsurgical technique and operating microscope Same procedure as scheduled: Yes Discharge Providers Provider Date of admission: 06/05/23 07:30 Discharge Date: 06/07/23 Consults: 06/05/23 14:28 Consult to Occupational Therapy Evaluate & Treat Comment: Physician Instructions: Evaluate and treat Consult to Physical Therapy Evaluate & Treat Comment: Physician Instructions: Evaluate and Treat Discharge provider: Margot Thomas PA-C Summary Hospital Course Discharge Diagnosis: C3-4, C4-5, C5-6, C6-7 spondylosis with myelopathy, C3-4, C4-5, C5-6, C6-7 spinal stenosis; s/p cervical fusion Morbid obesity Acute postoperative urinary retention Hospital Course: Mr Garcia's hospital course was remarkable for acute urinary retention on POD# 1, which necessitated the placement of a Singh catheter. The catheter was removed later in the day and the pt was able to void independently. On the morning of POD# 2, he was eating and voiding without difficulty and his pain was well-controlled with oral medication. He complained of continued numbness in his hands. Exam Vital Signs (past 8 hours): Fraction of Inspired Oxygen 28 SaO2/FiO2 Ratio 332 Oxygen Delivery Method Room Air Oxygen Flow Rate 0 Narrative Exam Narrative: 5/5 granite fabricator strength, biceps, triceps, deltoids bilaterally. Sensation to light touch intact throughout UE. Soft collar in place; dressing with minimal bloody drainage, intact. [facility] [place] Medical History (Updated 05/27/23 @ 14:48 by Ayana Joshua RN) Mood disorder History of COVID-19 (2020) Anesthesia complication (~2018) Testicular hypofunction Metabolic syndrome Gout Depression CAD (coronary artery disease) Arthritis Arrhythmia Anxiety ADD (attention deficit disorder) Rhinovirus (06/28/22) Episode of syncope (06/28/22) Diabetes JANETTE (obstructive sleep apnea) HLD (hyperlipidemia) Hypertension Surgical History (Updated 06/07/23 @ 06:49 by Margot Thomas PA-C) Hx of colonoscopy Hx of cardiac cath (2013) History of carpal tunnel surgery of left wrist History of carpal tunnel surgery of right wrist Social History household members: spouse and other Smoking Status: Former smoker alcohol intake: never Discharge Assessment & Plan Assessment and Plan Assessment: C3-4, C4-5, C5-6, C6-7 spondylosis with myelopathy, C3-4, C4-5, C5-6, C6-7 spinal stenosis; s/p cervical fusion Morbid obesity Acute postoperative urinary retention Plan of Treatment: Discharge home, f/u in office in 2 weeks as scheduled. Discharge Plan Discharge Plan Patient Disposition: Home Discharge orders & Medications Prescriptions: New oxycodone 5 mg tablet 5 mg PO Q4-6H PRN (Reason: pain (scale score 7-10)) Qty: 60 0RF hydroxyzine pamoate 25 mg Capsule 25 mg PO Q4HR PRN (Reason: muscle spasm) Qty: 60 0RF docusate sodium 100 mg Capsule 100 mg PO BID PRN (Reason: constipation) Qty: 60 1RF Continued carvedilol [Coreg] 3.125 mg tablet 12.5 mg PO BID Qty: 0 clonazepam [Klonopin] 0.5 mg tablet 1 mg PO BID Qty: 0 atorvastatin 40 mg Tablet 40 mg PO DAILY metformin 500 mg Tablet 500 mg PO BID acetaminophen 500 mg Tablet 1,000 mg PO BID spironolactone 25 mg Tablet 25 mg PO DAILY dextroamphetamine-amphetamine [Adderall] 30 mg Tablet 30 mg PO BID Rx Instructions: administer doses at least 4-6 hours apart modafinil 200 mg Tablet 400 mg PO QAM amlodipine 10 mg Tablet 10 mg PO DAILY fluoxetine 20 mg Tablet 60 mg PO DAILY gabapentin 300 mg Capsule 300 mg PO BID PRN (Reason: Pain) allopurinol 300 mg Tablet 300 mg PO DAILY lisinopril 40 mg Tablet 40 mg PO DAILY Ozempic 1 mg/dose (4 mg/3 mL) Pen Injector 1 mg SUBCUT QWEEK Discontinued ibuprofen [Advil] 200 mg Tablet 800 mg PO BID-TID Follow up/Referrals: Nicole Doshi MD [Physician] - As previously scheduled (Follow up with Dr Doshi on 06/20/2023 @ 3:20 pm at [facility] in [place].) Diet/Activity/Treatments Diet: Diet as Tolerated Diet comment: Stick to very soft and moist foods for the first 3-5 days after surgery. Activity: No lifting more than 10 pounds. Cold/Heat Therapy: Heating pad to back of neck/between shoulder blades as needed for pain. Other treatments: Soft cervical collar is for comfort; if it is uncomfortable, don't wear it. Most people feel better with it on when sitting or standing. Some people feel better with it on while sleeping. Take off to eat and shower. Skin/Wound/Dressing Care Dressing: May shower; leave dressing on until follow up in office. If dressing becomes wet inside, remove top layer but keep steri strips on until follow up visit. Do not need to replace top layer of dressing. Visit Report/Discharge Packet Instructions: DI for Prescription Opioid Use, DI for Anterior Cervical Discectomy and Fusion Stand Alone Forms: Patient Portal/API, Stroke Signs & Symptoms, Surgery Discharge Quality VTE Deep Vein Thrombosis/Pulmonary Embolism Present on Admission: No
[2023-06-07 07:00] VITALS: O2SAT 95
[2023-06-07 07:50] VITALS: BP 135/86; PULSE 60; RESP 21; TEMP 36.2; O2SAT 95
[2023-06-07 08:57] VITALS: BP 135/86; PULSE 60
[2023-06-07] MEDS: carvediloL 3.125 MG TABLET 12.5 MG PO (08:57)
[2023-06-07] MEDS: FLUoxetine 20 MG CAPSULE 60 MG PO (08:57)
[2023-06-07 08:58] VITALS: BP 135/86; PULSE 60
[2023-06-07] MEDS: ATORVASTATIN 20 MG TABLET 40 MG PO (08:58)
[2023-06-07] MEDS: lisinopriL 20 MG TABLET 40 MG PO (08:58)
[2023-06-07] MEDS: clonazePAM 0.5 MG TABLET 1 MG PO (08:58)
[2023-06-07] MEDS: DOCUSATE 100 MG CAPSULE PO (08:58)
[2023-06-07] MEDS: SPIRONOLACTONE 25 MG TABLET PO (08:58)
[2023-06-07] MEDS: METFORMIN HCL 500 MG TABLET PO (08:58)
[2023-06-07] MEDS: AMLODIPINE 5 MG TABLET 10 MG PO (08:58)
[2023-06-07] MEDS: hydrOXYzine pamoate 25 MG CAPSULE PO (08:58)
[2023-06-07] MEDS: allopurinoL 100 MG TABLET 300 MG PO (08:58)
[2023-06-07] MEDS: OXYCODONE IR 10 MG TABLET PO (08:59)
--- NOTE | 2023-06-07 11:41 | PC.NURSE ---
Day shift: Discharge instructions gone over with patient and patient's spouse. All questions answered and patient stated understanding. PIV d/c'ed prior to discharge. Pt has all belongings with him. PCT Veronique escorted patient via wheelchair to exit.
== END 2023-06-07 11:42 | disposition home or self-care (01) | DRG 472 ==
PROVIDERS: Admitting Provider Orthopaedic Surgery Orthopaedic Surgery of the Spine; Referring Provider Orthopaedic Surgery Orthopaedic Surgery of the Spine; Visit Provider Orthopaedic Surgery Orthopaedic Surgery of the Spine
PROC: 0RG20A0 Fusion of 2 or more Cervical Vertebral Joints with Interbody Fusion Device, Anterior Approach, Anterior Column, Open Approach (ICD-10-PCS; principal; 2023-06-05 08:45)
DX: M47.12 Other spondylosis with myelopathy, cervical region (principal); Z68.41 Body mass index [BMI] 40.0-44.9, adult; M48.02 Spinal stenosis, cervical region; E66.01 Morbid (severe) obesity due to excess calories; R33.9 Retention of urine, unspecified; I10 Essential (primary) hypertension; I25.10 Atherosclerotic heart disease of native coronary artery without angina pectoris; F41.9 Anxiety disorder, unspecified; E78.5 Hyperlipidemia, unspecified; E11.9 Type 2 diabetes mellitus without complications; M10.9 Gout, unspecified; G47.33 Obstructive sleep apnea (adult) (pediatric); Z87.891 Personal history of nicotine dependence; Z79.84 Long term (current) use of oral hypoglycemic drugs; Z79.85 Long-term (current) use of injectable non-insulin antidiabetic drugs
CPT/HCPCS: 72040; 76000; 94760; 97161; 97165; 97535; C1776; C1713; J0131; J0171; J0690; J1100; J1885; J2250; J2405; J2704; J3010; J3410